=== PATIENT | male | born 1980 | race Caucasian/White ===

== ENCOUNTER 2018-03-20 09:26 | Emergency (ER) | payer OTHER ==
--- NOTE | 2018-03-20 10:05 | XRAY Preliminary Report ---
Exam: XR HAND 3 VIEW LT IMPRESSION: Fourth metacarpal fracture [facility] SITE ID: [id number]
--- NOTE | 2018-03-20 10:06 | XRAY Report ---
EXAM: LEFT HAND RADIOGRAPHY EXAM DATE: 03/20/2018 09:47 AM. CLINICAL HISTORY: Fell backward about 1 1/2 weeks ago. COMPARISON: None. TECHNIQUE: 3 views. FINDINGS: Bones: fourth metacarpal oblique vertical fracture from proximal to mid distal. 1 mm offset on obli que frontal view. Joints: Normal. No subluxations. Soft Tissues: soft tissue swelling. IMPRESSION: Fourth metacarpal fracture [facility] Referring Provider Line: [phone] SITE ID: [id number]
--- NOTE | 2018-03-20 10:41 | ED Physician Documentation ---
PD HPI UPPER EXT INJURY - Stated complaint Stated Complaint: LEFT HAND PAIN - Chief complaint Chief Complaint: Ext Problem - History obtained from History obtained from: Patient - History of Present Illness Location: Left, Hand Type of injury: Fall Where injury occurred: Home Timing - onset: How many days ago (10) Timing - duration: Days (10) Timing - details: Abrupt onset, Still present Improved by: Rest, Ice, Immobilization Worsened by: Moving, Palpating Associated symptoms: Swelling. No: Weakness, Numbness Contributing factors: No: Anticoagulated Similar symptoms before: Diagnosis (sprain and fracture) Recently seen: Not recently seen - Additonal information Additional information: 38-year-old male fell about 10 days ago onto his outstretched left hand behind him. He felt the forces taken out by his ring finger and felt a snap when this happened. He has had swelling and the swelling is a little bit better now and is come in for x-ray examination he feels he might have a fracture. Review of Systems Constitutional: denies: Fever Respiratory: denies: Cough GI: denies: Vomiting Skin: denies: Rash Musculoskeletal: reports: Extremity pain, Extremity swelling Neurologic: denies: Generalized weakness, Focal weakness, Numbness PD PAST MEDICAL HISTORY - Past Medical History Past Medical History: Yes - Present Medications Home Medications: Ambulatory Orders Medication Instructions Recorded Confirmed No Known Home Medications [No 03/20/18 03/20/18 Known Home Medications] - Allergies Allergies/Adverse Reactions: Allergies Allergy/AdvReac Type Severity Reaction Status Date / Time No Known Drug Allergies Allergy Verified 03/20/18 09:32 - Social History Does the pt smoke?: Yes Smoking Status: Current every day smoker - Immunizations Immunizations are current?: Yes PD ED PE NORMAL - Vitals Vital signs reviewed: Yes (normal ) - General General: Alert and oriented X 3, No acute distress, Well developed/nourished - HEENT HEENT: Atraumatic, PERRL, EOMI - Neck Neck: Supple, no meningeal sign - Respiratory Respiratory: No respiratory distress - Derm Derm: Normal color, Warm and dry, No rash - Extremities Extremities: No deformity, Other (There is swelling and tenderness to the dorsum of the left hand specifically over the 4th MC. The distal n/v is intact. ) - Neuro Neuro: No motor deficit, No sensory deficit Eye Opening: Spontaneous Motor: Obeys Commands Verbal: Oriented GCS Score: 15 - Psych Psych: Normal mood, Normal affect Results - Vitals Vitals: Vital Signs - 24 hr 03/20/18 09:29 Temperature 36.4 C L Heart Rate 67 Respiratory 16 Rate O2 Saturation 100 Oxygen O2 Source Room air - Rads (name of study) left hand Radiology: Prelim report reviewed (Impression: Fourth metacarpal fracture.), EMP read indepedently, See rad report Procedures - Splint (location) left hand Splint applied by: Tech Type of splint: Fiberglass, Volar cock up Other: Patient tolerated well, No complications, Neurovascular intact, Good alignment PD MEDICAL DECISION MAKING - ED course Complexity details: reviewed results, re-evaluated patient, considered differential, d/w patient ED course: 38-year-old male with fracture of the fourth metacarpal on the left hand is placed into a splint. Departure - Departure Disposition: 01 Home, Self Care Clinical Impression: Metacarpal bone fracture Qualifiers: Encounter type: initial encounter Metacarpal bone: fourth Fracture type: closed Metacarpal location: shaft Fracture alignment: nondisplaced Laterality: left Qualified Code(s): S62.355A - Nondisplaced fracture of shaft of fourth metacarpal bone, left hand, initial encounter for closed fracture Instructions: ED Fx Hand Closed Follow-Up: [facility] [Provider Group]
[2018-03-20 11:07] VITALS: BP 122/90
== END 2018-03-20 11:17 | disposition home or self-care (01) ==
LOC: ED 09:26
DX: S62.355A Nondisplaced fracture of shaft of fourth metacarpal bone, left hand, initial encounter for closed fracture (principal); W18.39XA Other fall on same level, initial encounter; Y92.009 Unspecified place in unspecified non-institutional (private) residence as the place of occurrence of the external cause; F17.200 Nicotine dependence, unspecified, uncomplicated
CPT/HCPCS: 29125; 99283